=== PATIENT | female | born 1995 | race African-American/Black ===

== ENCOUNTER 2021-01-13 10:08 | Emergency (ER) | payer OTHER ==
[~2021-01-13] VITALS: Ht 172.7 cm; Wt 65.0 kg
[2021-01-13] MEDS ORDERED: IBUPROFEN 600MG TABLET PO STA (11:21)
[2021-01-13] MEDS ORDERED: ACETAMINOPHEN 325MG TABLET PO STA (11:48)
[2021-01-13 12:01] VITALS: BP 105/71
== END 2021-01-13 12:01 | disposition left against medical advice (07) ==
LOC: ER 10:08
DX: O99.891 Other specified diseases and conditions complicating pregnancy (principal); M25.532 Pain in left wrist; O26.891 Other specified pregnancy related conditions, first trimester; R03.0 Elevated blood-pressure reading, without diagnosis of hypertension; Z3A.08 8 weeks gestation of pregnancy; V00.128A Other non-in-line roller-skating accident, initial encounter; Y93.51 Activity, roller skating (inline) and skateboarding; Y92.89 Other specified places as the place of occurrence of the external cause
CPT/HCPCS: 99281